=== PATIENT | male | born 1980 | race Caucasian/White ===

== ENCOUNTER 2018-06-16 21:24 | Emergency (ER) | payer BC ==
[2018-06-16 21:42] VITALS: BP 145/82
[2018-06-16] MEDS ORDERED: Amoxicillin/Clavulanate TAB* 875 MG PO ONE ×2 (21:51→21:52)
--- NOTE | 2018-06-16 21:56 | UC ---
Bite Injury/Animal HPI - HPI Summary HPI Summary: pt was bitten on his R hand by his dog. the dog is newly adopted and utd on all shot. dog fine before and after the bite. dog was very excited at time of bite. occurred 2 hours [employer]. pt tetanus is within 10 years. - History of Current Complaint Chief Complaint: UCBiteInjury Stated Complaint: RT RING FINGER PAIN Time Seen by Provider: 06/16/18 21:35 Hx Obtained From: Patient Pain Intensity: 1 Has Animal Been Immunized?: Yes Aggravating Factor(s): Nothing Alleviating Factor(s): Nothing Associated Signs And Symptoms: Negative: Fever, Erythema, Drainage, Numbness/ Tingling, Limited ROM Animal Available for Observation: Yes - Allergies/Home Medications Allergies/Adverse Reactions: Allergies Allergy/AdvReac Type Severity Reaction Status Date / Time No Known Allergies Allergy Verified 06/16/18 21:42 PMH/Surg Hx/FS Hx/Imm Hx Previously Healthy: Yes - Surgical History Surgical History: None - Family History Known Family History: Positive: Non-Contributory - Social History Alcohol Use: None Substance Use Type: Marijuana Substance Use Comment - Amount & Last Used: occasional Smoking Status (MU): Never Smoked Tobacco - Immunization History Most Recent Tetanus Shot: within 10 years Hx Tetanus, Diphtheria Vaccination: Yes Vaccination Up to Date: Yes Review of Systems All Other Systems Reviewed And Are Negative: Yes Constitutional: Negative: Fever Skin: Negative: Rash Eyes: Positive: Negative ENT: Positive: Negative Respiratory: Positive: Negative Cardiovascular: Positive: Negative Gastrointestinal: Positive: Negative Genitourinary: Positive: Negative Motor: Positive: Negative. Negative: Decreased ROM Neurovascular: Positive: Negative Musculoskeletal: Positive: Negative Neurological: Negative: Weakness, Paresthesia, Numbness Psychological: Positive: Negative Physical Exam Triage Information Reviewed: Yes Appearance: Well-Appearing Vital Signs: Initial Vital Signs Temp 98.3 F 06/16/18 21:36 Pulse 87 06/16/18 21:36 Resp 16 06/16/18 21:36 BP 145/82 06/16/18 21:36 Pulse Ox 99 06/16/18 21:36 Vital Signs Reviewed: Yes Eyes: Positive: Conjunctiva Clear ENT: Positive: Normal ENT inspection Neck: Positive: Supple Respiratory: Positive: Lungs clear, Normal breath sounds Cardiovascular: Positive: RRR, No Murmur Abdomen Description: Positive: Nontender, No Organomegaly, Soft Bowel Sounds: Positive: Present Musculoskeletal: Positive: Other: - R hand: abrasions to dorsal hand and a single superficial flap laceration dorsal ring finger with mild swelling but no active bleeding. no bony deformity or tenderness. hand has full s/v/m function. No erythema or drainage. Neurological: Positive: Alert Psychological: Positive: Age Appropriate Behavior Skin Exam: Normal Bite Injury Course/Dx - Course Course Of Treatment: Procedure: Hand wash by myself with warm-soapy water then rinsed. antibiotic ointmnet applied to wounds. Bandaide applied to the ring finger. will tx with augmentin to prevent infection. tetanus is UTD. no hx htn. BP visit related. - Differential Dx/Diagnosis Provider Diagnosis: Dog bite of right hand Discharge - Sign-Out/Discharge Documenting (check all that apply): Patient Departure All imaging exams completed and their final reports reviewed: No Studies - Discharge Plan Condition: Stable Disposition: HOME Prescriptions: Amoxicillin/Clavulanate TAB* [Augmentin TAB 875*] 875 mg PO BID 10 Days #20 tab Patient Education Materials: Animal Bite (ED) Referrals: KYLER Duque [Medical Doctor] - 5 Days - Billing Disposition and Condition Condition: STABLE Disposition: Home
== END 2018-06-16 22:02 | disposition home or self-care (01) ==
LOC: UCCORT 21:24
DX: S60.511A Abrasion of right hand, initial encounter (principal); S61.214A Laceration without foreign body of right ring finger without damage to nail, initial encounter; W54.0XXA Bitten by dog, initial encounter; Y92.9 Unspecified place or not applicable
CPT/HCPCS: 99202; A9270-GY; G0463

== ENCOUNTER 2019-05-31 13:28 | Emergency (ER) | payer BC ==
[2019-05-31 13:57] VITALS: BP 129/74
[2019-05-31 14:04] LABS: Influenza A Molecular POSITIVE (Negative)
--- NOTE | 2019-05-31 14:04 | UC ---
Respiratory Complaint HPI - HPI Summary HPI Summary: fever / chills x 1 day body aches , mild cough , chest congestion no sore throat, no n/v/d/c , no urinary sx - History of Current Complaint Chief Complaint: UCGeneralIllness Stated Complaint: FLULIKE SYMPTOMS Time Seen by Provider: 05/31/19 13:50 Hx Obtained From: Patient Onset/Duration: Gradual Onset, Lasting Days - 1, Still Present Timing: Constant Severity Initially: Moderate Severity Currently: Moderate Pain Intensity: 0 Character: Cough: Nonproductive Aggravating Factors: Exertion, Deep Breaths Alleviating Factors: Nothing Associated Signs And Symptoms: Positive: Fever, Chills, URI, Nasal Congestion. Negative: Dyspnea, Wheezing, Hemoptysis, Dizziness, Calf Pain, Calf Swelling, Edema, Hoarseness - Allergies/Home Medications Allergies/Adverse Reactions: Allergies Allergy/AdvReac Type Severity Reaction Status Date / Time No Known Allergies Allergy Verified 05/31/19 13:53 Home Medications: Home Medications Ibuprofen/Phenylephrine HCl [Sudafed PE Head Congestn-Pain] 2 each PO Q6H PRN [History Confirmed 05/31/19] PMH/Surg Hx/FS Hx/Imm Hx Previously Healthy: Yes - Surgical History Surgical History: None - Family History Known Family History: Positive: Non-Contributory - Social History Alcohol Use: None Substance Use Type: Marijuana Substance Use Comment - Amount & Last Used: Occasional Smoking Status (MU): Former Smoker Type: Cigarettes Length of Time of Smoking/Using Tobacco: ~1/2 PPD x 10 Years When Did the Patient Quit Smoking/Using Tobacco: 2009 - Immunization History Most Recent Tetanus Shot: within 10 years Hx Tetanus, Diphtheria Vaccination: Yes Vaccination Up to Date: Yes Review of Systems All Other Systems Reviewed And Are Negative: Yes Constitutional: Positive: Fever, Chills, Fatigue Skin: Positive: Negative Eyes: Positive: Negative ENT: Positive: Sinus Congestion Respiratory: Positive: Cough Cardiovascular: Positive: Negative Musculoskeletal: Positive: Arthralgia, Myalgia Is Patient Immunocompromised?: No Physical Exam Triage Information Reviewed: Yes Appearance: Well-Appearing, No Pain Distress, Well-Nourished Vital Signs: Initial Vital Signs Temp 102.1 F 05/31/19 13:51 Pulse 101 05/31/19 13:51 Resp 17 01/14/20 13:51 BP 129/74 05/31/19 13:51 Pulse Ox 97 05/31/19 13:51 Vital Signs Reviewed: Yes Eye Exam: Normal Eyes: Positive: Conjunctiva Clear ENT: Positive: Normal ENT inspection, Hearing grossly normal, Pharynx normal, Nasal congestion, TMs normal Neck: Positive: Supple, Nontender, No Lymphadenopathy Respiratory: Positive: Chest non-tender, Lungs clear, Normal breath sounds Cardiovascular: Positive: Tachycardia Abdominal Exam: Normal Abdomen Description: Positive: Nontender, No Organomegaly, Soft. Negative: CVA Tenderness (R), CVA Tenderness (L), Distended, Guarding Bowel Sounds: Positive: Present Skin Exam: Normal Respiratory Course/Dx - Differential Dx/Diagnosis Provider Diagnosis: Influenza A Discharge ED - Sign-Out/Discharge Documenting (check all that apply): Patient Departure All imaging exams completed and their final reports reviewed: No Studies - Discharge Plan Condition: Stable Disposition: HOME Prescriptions: Oseltamivir CAP* [Tamiflu CAP*] 75 mg PO BID #10 cap Patient Education Materials: Influenza (DC) Referrals: No Primary Care Phys,NOPCP [Primary Care Provider] - If Needed - Billing Disposition and Condition Condition: STABLE Disposition: Home
== END 2019-05-31 14:15 | disposition home or self-care (01) ==
LOC: UCCORT 13:28
DX: J10.1 Influenza due to other identified influenza virus with other respiratory manifestations (principal); Z87.891 Personal history of nicotine dependence
CPT/HCPCS: 99212; G0463